=== PATIENT | female | born 1955 | race Caucasian/White ===

== ENCOUNTER 2017-10-07 07:35 | Outpatient (CLI) | payer OTHER | END 2017-10-07 07:47 | disposition home or self-care (01) | LOC: LAB 07:35 | DX: D64.9 Anemia, unspecified (principal); E11.9 Type 2 diabetes mellitus without complications; E78.2 Mixed hyperlipidemia; I10 Essential (primary) hypertension; E03.8 Other specified hypothyroidism ==

== ENCOUNTER 2017-10-25 11:10 | Outpatient (CLI) | payer OTHER | END 2017-10-25 11:11 | disposition home or self-care (01) | LOC: LAB 11:10 | DX: E55.9 Vitamin D deficiency, unspecified (principal) ==

== ENCOUNTER 2018-11-22 09:05 | Outpatient (CLI) | payer OTHER | END 2018-11-22 09:19 | disposition home or self-care (01) | LOC: RAD 09:05 | DX: M25.561 Pain in right knee (principal) ==